=== PATIENT | male | born 2000 | race Caucasian/White ===

== ENCOUNTER 2021-06-11 21:16 | Emergency (ER) | payer BC ==
[~2021-06-11] VITALS: Ht 188 cm; Wt 90.9 kg
[2021-06-11 21:27] VITALS: BP 133/59
[2021-06-11] MEDS ORDERED: LORazepam 2 mg/ml vial IM ONE (23:25)
[2021-06-11] MEDS ORDERED: LORA-269 PO (23:26)
[2021-06-11] MEDS ORDERED: LORazepam 1 MG tablet PO ONE (23:35)
[2021-06-11] MEDS ORDERED: MELA5TAB12 PO (23:46)
== END 2021-06-12 00:07 | disposition home or self-care (01) ==
LOC: ER 21:17
DX: F41.0 Panic disorder [episodic paroxysmal anxiety] (principal); R20.0 Anesthesia of skin; Z79.899 Other long term (current) drug therapy
CPT/HCPCS: 99283